=== PATIENT | male | born 1985 | race Caucasian/White ===

== ENCOUNTER 2017-08-04 20:48 | Emergency (ER) | payer BC ==
--- NOTE | 2017-08-04 20:51 | UC ---
UC General HPI - HPI Summary HPI Summary: 31 YR OLD MALE with 1 day of testicular pain. It started last night. It improved today but still lingering and 01/24. Has been more active lately. No STI in the past. - History of Current Complaint Stated Complaint: PERSONAL Time Seen by Provider: 08/04/17 20:50 Hx Obtained From: Patient Onset/Duration: Gradual Onset Timing: Constant - Allergy/Home Medications Allergies/Adverse Reactions: Allergies Allergy/AdvReac Type Severity Reaction Status Date / Time No Known Allergies Allergy Verified 08/04/17 20:58 Home Medications: Home Medications NK [No Home Medications Reported] 08/04/17 [History Confirmed 08/04/17] PMH/Surg Hx/FS Hx/Imm Hx Previously Healthy: Yes - Family History Known Family History: Negative: Cardiac Disease - Social History Occupation: Employed Full-time Lives: With Family Review of Systems Genitourinary: Other - testicular pain All Other Systems Reviewed And Are Negative: Yes Physical Exam Triage Information Reviewed: Yes Appearance: Well-Appearing, No Pain Distress, Well-Nourished Vital Signs Reviewed: Yes Eye Exam: Normal ENT Exam: Normal Dental Exam: Normal Neck exam: Normal Neck: Positive: 1 Respiratory Exam: Normal Cardiovascular Exam: Normal Abdomen Description: Positive: Other: - right sided testicular pain to palpation mild with epididymal tenderness and swelling. Negative: CVA Tenderness (R), CVA Tenderness (L) Musculoskeletal Exam: Normal Neurological Exam: Normal Psychological Exam: Normal Skin Exam: Normal Course/Dx - Course Course Of Treatment: Go to ED. Spoke with Evelin and given sign out as no providers available. To go by car. Agree to plan He is aware of potential torsion and its a surgical emergency - Differential Dx - Multi-Symptom Differential Diagnoses: Urinary Tract Infection Provider Diagnoses: Testicular Pain Right Sided Discharge - Discharge Plan Condition: Guarded Disposition: TRANS HIGHER LVL OF CARE FAC Patient Education Materials: Testicle Pain (ED) Referrals: Non Staff,Doctor [Primary Care Provider] - Additional Instructions: PLEASE GO TO THE EMERGENCY ROOM AT THIS TIME
[2017-08-04 20:59] VITALS: BP 148/89
== END 2017-08-04 21:41 | disposition short-term general hospital (02) ==
LOC: UCCORT 20:48
DX: N50.811 Right testicular pain (principal)
CPT/HCPCS: 99202; G0463